=== PATIENT | female | born 1985 | race Caucasian/White ===

== ENCOUNTER → 2016-02-29 | Outpatient (CLI) | payer OTHER ==
--- NOTE | 2016-03-01 09:26 | ECGEPIP ---
Stationary ECG Study [facility] Test Date: 2016-02-29 Pat Name: BRENDAN ACKERMAN Department: Room: - Gender: F Manager Academic: RF : 1985 Requested By: TERE Pool Order Number: [id number] Reading MD: Braxton Leonardo Measurements Intervals [place] Rate: 89 P: 26 ID: [id number] QRS: 70 QRSD: 87 T: 15 QT: 346 QTc: 423 Interpretive Statements SINUS RHYTHM Comparison tracing not on file Electronically Signed On 03-01-2016 9:25:51 EST by Braxton Leonardo
== END | disposition home or self-care (01) ==
LOC: M EKG 15:14
PROVIDERS: ATTEND Specialist
DX: R00.0 Tachycardia, unspecified (principal)

== ENCOUNTER → 2016-03-07 | Outpatient (CLI) | payer OTHER ==
--- NOTE | 2016-03-07 21:26 | REP ---
Clinical: Anatomical evaluation. Comparison: 02/10/2016 . Findings: Examination demonstrates a single live intrauterine in cephalic presentation. motion is identified by technologist. Placenta is noted anteriorly and grade zero without evidence for placenta previa or abruption. Amniotic fluid volume is normal. Cervix measures row 4.2 cm in length and appears closed. No evidence for nuchal cord. Gestational age by LMP 21 weeks 4 days with ROBBI 07/14/2016 . Gestational age by current measurements 22 weeks 5 days with ROBBI 07/06/2016 . FHR equals 157 beats per minute. Estimated weight 561 grams ( 90th percentile based on age by current measurements). Anatomical assessment demonstrates normal structures including cranium, choroid plexus, cavum, cerebellum/posterior fossa, lungs, ventricular outflow tracts, diaphragm, stomach, three-vessel cord, kidneys/bladder, and spine. Limited evaluation of the four-chamber heart is again noted. Bilateral renal pelviectasis within normal range. Impression: Single live intrauterine in cephalic presentation demonstrating appropriate interval growth when compared to first ultrasound. Limited evaluation of the four-chamber heart view with otherwise normal complete anatomical assessment. Signed by Norman Cruz MD 03/07/2016 09:17 P
== END | disposition home or self-care (01) ==
LOC: M RAD 14:26
PROVIDERS: ATTEND Specialist
DX: Z36 Encounter for antenatal screening of mother (principal); Z3A.22 22 weeks gestation of pregnancy

== ENCOUNTER → 2016-03-20 | Outpatient (REF) | payer OTHER | END | disposition home or self-care (01) | LOC: M SFHCLERA 14:14 | PROVIDERS: ATTEND Nurse Practitioner Family | DX: J02.9 Acute pharyngitis, unspecified (principal) ==

== ENCOUNTER → 2016-03-31 | Outpatient (CLI) | payer OTHER ==
--- NOTE | 2016-03-31 16:58 | REP ---
Obstetric ultrasound for follow-up of anatomy: The prior anatomy study dated 03/07/2016 did not adequately visualize the four-chamber view of the heart. Study today is for follow-up of the four-chamber view of the heart. There is again a single intrauterine gestation. Fetus is in a vertex presentation. There is movement and cardiac activity, the heart rate is 139 beats per minute. The placenta is anterior. There is no previa or abruptio. Placenta is grade 1 maturity. Amniotic fluid volume subjectively is normal. The cervix is 3.6 cm length. Gestational age by today's measurements is 25 weeks 1 day per gestational age by the first ultrasound during this gestation is 25 weeks 0 days and by LMP 25 weeks 0 days. weight is 108 grams (1 pound, 12 ounces). This is the 25th percentile for 25-week 0 days. On the study today the four-chamber view of the heart is adequately demonstrated and is unremarkable. The remainder of the prior anatomy was previously adequately identified and unremarkable. Impression: Four-chamber view of the heart is adequately demonstrated and unremarkable. Signed by Jose Cavazos MD 03/31/2016 04:50 P
== END | disposition home or self-care (01) ==
LOC: M LRY 13:43
PROVIDERS: ATTEND Specialist
DX: Z34.82 Encounter for supervision of other normal pregnancy, second trimester (principal); Z36 Encounter for antenatal screening of mother; Z3A.25 25 weeks gestation of pregnancy

== ENCOUNTER → 2016-04-06 | Outpatient (CLI) | payer OTHER ==
[2016-04-06 18:15] LABS: BASO % 0.4 % (0.0-1.0); EOS # 0.2 K/mm3 (0.0-0.50); EOS % 1.8 % (0.0-3.0); LARGE UNSTAINED CELL # 0.2 K/mm3 (0.0-0.4); LARGE UNSTAINED CELL % 2.1 % (0.0-4.0); LYMPH # 1.8 K/mm3 (1.5-4.5); LYMPH % 15.1 % (24.0-44.0); MEAN CORPUSCULAR HEMOGLOBIN 29.1 pg (27.0-33.0); MEAN CORPUSCULAR HGB CONC 32.3 g/dl (32.0-36.5); MEAN CORPUSCULAR VOLUME 90.2 fl (80.0-96.0); MONO # 0.7 K/mm3 (0.0-0.8); MONO % 6.7 % (0.0-5.0); NEUTROPHILS # 7.7 K/mm3 (1.8-7.7); NEUTROPHILS % 73.9 % (36.0-66.0); PLATELET COUNT, AUTOMATED 249 k/mm3 (150-450); RED CELL DISTRIBUTION WIDTH 13.5 % (11.5-14.5); WHITE BLOOD COUNT 10.4 K/mm3 (4.0-10.0)
== END ==
LOC: M LRY 10:38
PROVIDERS: ATTEND Specialist
DX: Z34.82 Encounter for supervision of other normal pregnancy, second trimester (principal)

== ENCOUNTER → 2016-04-13 | Outpatient (CLI) | payer OTHER | LOC: M LAB 07:28 | PROVIDERS: ATTEND Specialist | DX: Z34.82 Encounter for supervision of other normal pregnancy, second trimester (principal) ==

== ENCOUNTER → 2016-06-13 | Outpatient (CLI) | payer OTHER ==
--- NOTE | 2016-06-14 04:30 | REP ---
Clinical: Growth discrepancy . Comparison: 03/31/2016 . Findings: Examination demonstrates a single live intrauterine in cephalic presentation. motion is identified by technologist. Placenta is noted anteriorly and grade one without evidence for placenta previa or abruption. Amniotic fluid volume is normal. Nuchal cord cannot be excluded. Internal os appears closed. Gestational age by LMP 35 weeks 4 days with ROBBI 07/14/2016 . Gestational age by current measurements 36 weeks 3 days with ROBBI 07/08/2016 . FHR equals 153 beats per minute. BPD 8.9 cm 36 weeks 0 days HC 32.3 cm 36 weeks 3 days AC 33.2 cm 37 weeks 1 day FL 7.2 cm 37 weeks 0 days HC/AC ratio 0.97 Estimated weight 3061 grams (73rd percentile). Amniotic fluid index equals 7.7 cm. Limited anatomical assessment suggests mild hydronephrosis and ultrasound may be warranted. Impression: Single live intrauterine in cephalic presentation demonstrating appropriate interval growth. Amniotic fluid volume is lower limits of normal. Mild renal hydronephrosis may warrant follow-up evaluation. Signed by Norman Cruz MD 06/14/2016 04:21 A
== END ==
LOC: M SMT 09:09
PROVIDERS: ATTEND Advanced Practice Midwife
DX: O26.843 Uterine size-date discrepancy, third trimester (principal); Z36 Encounter for antenatal screening of mother; Z3A.36 36 weeks gestation of pregnancy; O36.8930 Maternal care for other specified fetal problems, third trimester, not applicable or unspecified

== ENCOUNTER 2016-07-05 16:14 | Outpatient (CLI) | payer OTHER ==
[~2016-07-05] VITALS: Ht 149.9 cm; Wt 90.0 kg
[2016-07-05] MEDS ORDERED: PREN27TA3 PO (16:57)
[2016-07-05] MEDS ORDERED: LEVO75TA4 PO (16:57)
== END 2016-07-05 18:28 ==
LOC: M LDI 16:14 → UNDOADMIN 16:14 → M LDI 16:14 → M LDO 16:14 → UNDODISIN 18:28 → EDSTATUS 07-06 13:46
PROVIDERS: ATTEND Obstetrics & Gynecology
DX: O47.1 False labor at or after 37 completed weeks of gestation (principal); Z3A.39 39 weeks gestation of pregnancy

== ENCOUNTER 2016-07-10 01:40 | Inpatient (IN) | payer OTHER ==
[2016-07-10] VITALS (59 sets, daily range): BP systolic 83–148; BP diastolic 45–83
[~2016-07-10] VITALS: Ht 149.9 cm; Wt 95.0 kg
[~2016-07-10 01:40] MED LIST: LEVO75TA4 PO; PREN27TA3 PO
[2016-07-10] MEDS ORDERED: LR 1,000 ML IV SCH (04:48)
[2016-07-10] MEDS ORDERED: OXYTOCIN DRIP 30 UNITS in APPROPRIATE DILUENT 1 EA IV SCH ×2 (05:00→18:15)
[2016-07-10 05:24] LABS: MEAN CORPUSCULAR HEMOGLOBIN 27.5 pg (27.0-33.0); MEAN CORPUSCULAR HGB CONC 32.1 g/dl (32.0-36.5); MEAN CORPUSCULAR VOLUME 85.6 fl (80.0-96.0); RED CELL DISTRIBUTION WIDTH 14.6 % (11.5-14.5); WHITE BLOOD COUNT 13.7 K/mm3 (4.0-10.0)
--- NOTE | 2016-07-10 07:40 | HPE ---
DATE OF ADMISSION: 07/10/2016 Carlee is a 30-year-old 4, para 1-0-2-1 at 40 weeks gestation with an estimated date of confinement (EDC) of 07/10/2016 based on last normal period and confirmed by first trimester ultrasound. She presents to labor and delivery today with a report of uncomfortable contractions that were throughout the day yesterday and increasingly got more uncomfortable and closer together throughout the evening. She does report spontaneous rupture of clear fluid at 0430 hours. She does report some scant bloody show and the fetus has been active. care was initiated at [facility] in the first trimester. course complicated by obesity, history of previous section and hypothyroid. OBSTETRICAL HISTORY: March 2006: Spontaneous miscarriage. August 2013: A primary section for a 7 pound 5 ounce male following arrest of dilation and chorioamnionitis. November 2014: Ectopic . OB LABS: Blood type O+, antibody screen negative, rubella immune, VDRL nonreactive. Hepatitis B surface antigen negative, HIV negative, hepatitis C antibody nonreactive. Gonorrhea and chlamydia negative. Quad screen normal. Gestational diabetic screening elevated at 159, 3-hour glucose tolerance test normal, fasting 87, 1-hour 162, 2-hour 144, 3-hour 94. Her GBS is negative. PAST MEDICAL HISTORY: Hypothyroid. Childhood varicella. SURGICAL HISTORY: section. Appendectomy. Tonsillectomy. Left salpingectomy. FAMILY HISTORY: Diabetes, hypertension and asthma. SOCIAL HISTORY: The patient is . Her is at bedside and supportive. She is a nonsmoker. Denies alcohol and drug use. She denies a history of any sexually transmitted infections. Denies a history of abuse - physical, sexual and emotional. ALLERGIES: GRASS. No known drug allergies. CURRENT MEDICATIONS: Includes: - Synthroid 75 mcg - vitamin OBJECTIVE: Temperature 97.8, pulse 85, respirations 18, blood pressure 126/83. She is tensing with her contractions. heart rate is 120 with moderate variability, positive accelerations, no decelerations noted. Contractions every 3-5 minutes. Sterile speculum exam noted to be positive pooling, positive Valsalva, positive Nitrazine and positive fern. Sterile vaginal exam: 2 cm dilated, 80% effaced, -3 station. Her abdomen is gravid, cephalic presentation. Estimated weight 3700 grams. ASSESSMENT: Intrauterine at 40 weeks gestation. heart rate category one, early labor. PLAN: Admit the patient to labor and delivery. Out of bed ad key. Clear liquid diet. Labs as ordered. I do plan to start IV Pitocin to augment the patient's labor. She does desire an epidural for her labor coping. She has been counseled regarding a trial of labor after and risks including but not limited to uterine rupture during labor, compromise due to uterine rupture, risks to section including infection, hemorrhage, problems with anesthesia, injury to other body organs and future pregnancies, having complications related to abnormal placentation. She has been prior counseled during her care and still desires to proceed with a trial of labor after section. I do anticipate a more active labor and a vaginal after . LIZETT
[2016-07-10] MEDS ORDERED: FENTANYL 2MCG/ML ROPIVACAINE 0.2% IN 0.9% NACL 200ML IVBAG As Ordered ONE (08:35)
[2016-07-10] MEDS ORDERED: diphenhydrAMINE INJ 50MG/ML VIAL (J1200) IV PRN (10:00)
[2016-07-10] MEDS ORDERED: REFRIGERATOR IV KEYS XX PRN (10:00)
[2016-07-10] MEDS ORDERED: FENTANYL/ROPIVACAINE/NACL BAG 200 ML EPIDURAL SCH (10:00)
[2016-07-10] MEDS ORDERED: EPIDURAL/PCA KEYS XX PRN (10:00)
[2016-07-10] MEDS ORDERED: ONDANSETRON 4MG/2ML VIAL (J2405) IV PRN (10:00)
[2016-07-10] MEDS ORDERED: LACTATED RINGER'S 1000 ML IV PRN (10:00)
[2016-07-10] MEDS ORDERED: NALOXONE INJ 0.4 MG/1 ML VIAL (J2310) IV PRN (10:00)
[2016-07-10] MEDS ORDERED: EPIDURAL COMMENT XX SCH (10:00)
[2016-07-10] MEDS ORDERED: ePHEDrine SULFATE 25 MG/5 ML(5MG/ML) SYRINGE IV PRN (10:00)
[2016-07-10 17:39] LABS: CORD GAS ABE V -9.5; CORD GAS HCO3 V 17.7 MEQ/L; CORD GAS O2 SAT V 59.5 %; CORD GAS PCO2 V 43.4 mmHg; CORD GAS PH V 7.229 UNITS; CORD GAS PO2 V 29.2 mmHg; CORD GAS SBC V 16.2 MEQ/L; CORD GAS TCO2 V 19.1 MEQ/L
[2016-07-10 17:41] LABS: CORD GAS ABE A -11.6; CORD GAS HCO3 A 20.1 MEQ/L; CORD GAS O2 SAT A 23.6 %; CORD GAS PCO2 A 72.8 mmHg; CORD GAS PH A 7.058 UNITS; CORD GAS PO2 A 18.3 mmHg; CORD GAS SBC A 14.1 MEQ/L; CORD GAS TCO2 A 22.3 MEQ/L
[2016-07-10] MEDS ORDERED: DOCUSATE SODIUM 100 MG CAP PO PRN (18:15)
[2016-07-10] MEDS ORDERED: MEASLES,MUMPS,RUBELLA VACCINE INJ (MMR-II) (90707) SC SCH (18:15)
[2016-07-10] MEDS ORDERED: DIBUCAINE 1% OINTMENT 30GM TOP PRN (18:15)
[2016-07-10] MEDS ORDERED: RHOGAM 300 MCG (1500 IU) INJ (J2790) IM SCH (18:15)
[2016-07-10] MEDS ORDERED: METHYLERGONOVINE MALEATE 0.2 MG TAB PO PRN (18:15)
--- NOTE | 2016-07-10 18:55 | DN ---
DATE: 07/10/2016 Carlee is a 30-year-old 4, para 2-0-2-2 now, who was admitted to labor and delivery in active labor. Her labor was augmented with intravenous (IV) Pitocin. She utilized an epidural for her labor coping. She progressed to complete dilation at 1630. She pushed to a normal spontaneous vaginal delivery of a live male infant in occiput anterior (OA) position with restitution to right occiput transverse (ROT) position at 1730. There was a nuchal cord times one loose that was manually reduced. There was also a mild shoulder dystocia that was relieved with Priya maneuver and suprapubic pressure. The 's mouth and nares were bulb suctioned due to noted meconium-stained fluid at the time of delivery. The cord was clamped times two and cut. The was taken immediately to the warmer for resuscitation and evaluation by awaiting labor and delivery staff. Cord gases and cord bloods were obtained. Spontaneous expulsion of an intact placenta by three-vessel cord by Cannon mechanism was at 1737. Uterine hemostasis was achieved with IV Pitocin rapid infusion and uterine fundal massage. Perineum and vagina were inspected, noted to have a second-degree midline laceration. The laceration was repaired with 3-0 Rapide in the usual fashion. Estimated blood loss 350 mL. male weighed 8 pounds 6 ounces, 3784 grams, scores 6 and 9. Family have named him Jose, and the mom does plan to breastfeed. The was moving all extremities well. At the close of delivery, lap counts and needle counts and instrument counts were correct and verified. [facility]
[2016-07-10] MEDS: IBUPROFEN 800 MG TAB PO PRN (19:19)
[2016-07-11] MEDS: ACETAMINOPHEN 500 MG TAB PO PRN ×2 (03:03→21:17)
[2016-07-11 06:44] VITALS: BP 124/66
[2016-07-11] MEDS: PRENATAL VITAMIN TAB PO SCH (09:43)
[2016-07-11] MEDS: IBUPROFEN 800 MG TAB PO PRN ×2 (09:44→16:50)
[2016-07-11 18:00] VITALS: BP 130/68
[2016-07-12] MEDS: IBUPROFEN 800 MG TAB PO PRN (02:51)
[2016-07-12] MEDS: ACETAMINOPHEN 500 MG TAB PO PRN (05:09)
[2016-07-12 06:11] VITALS: BP 121/65
[2016-07-12] MEDS: PRENATAL VITAMIN TAB PO SCH (07:55)
[2016-07-12] MEDS ORDERED: IBUP-1114 PO (10:48)
[2016-07-12] MEDS ORDERED: ACET50TA PO (10:48)
== END 2016-07-12 15:45 | disposition home or self-care (01) | DRG 775 ==
LOC: M LDO 01:40 → M LDI 04:45 → M OBS 20:36
PROVIDERS: ADMIT Advanced Practice Midwife; ATTEND Advanced Practice Midwife
PROC: 10E0XZZ Delivery of Products of Conception, External Approach (ICD-10-PCS; principal; 2016-07-10)
PROC: 0KQM0ZZ Repair Perineum Muscle, Open Approach (ICD-10-PCS; 2016-07-10)
DX: O34.219 Maternal care for unspecified type scar from previous cesarean delivery (principal); Z37.0 Single live birth; Z3A.40 40 weeks gestation of pregnancy; E66.9 Obesity, unspecified; E03.9 Hypothyroidism, unspecified; O99.214 Obesity complicating childbirth; O99.284 Endocrine, nutritional and metabolic diseases complicating childbirth; Z90.721 Acquired absence of ovaries, unilateral; Z79.899 Other long term (current) drug therapy; O69.82X0 Labor and delivery complicated by other cord entanglement, without compression, not applicable or unspecified; O66.0 Obstructed labor due to shoulder dystocia; O77.0 Labor and delivery complicated by meconium in amniotic fluid; O70.1 Second degree perineal laceration during delivery

== ENCOUNTER 2016-11-22 16:39 | Emergency (ER) | payer OTHER ==
[~2016-11-22] VITALS: Ht 149.9 cm; Wt 95.9 kg
[~2016-11-22 16:39] MED LIST changes: -CYCL10TA PO; -NEXP1IMP SC; -TYLE325C PO; -ZOLO50TA PO
[2016-11-22] MEDS ORDERED: NEXP1IMP SC (17:01)
[2016-11-22] MEDS ORDERED: ZOLO50TA PO (17:01)
[2016-11-22] MEDS ORDERED: TYLE325C PO (17:01)
[2016-11-22 19:10] LABS: BASO # 0.1 10^3/uL (0.0-0.2); BASO % 0.5 % (0.0-1.0); EOS # 0.2 10^3/uL (0.0-0.50); EOS % 1.5 % (0.0-3.0); IMMATURE GRANULOCYTE % 0.5 % (0-0); LYMPH # 2.9 10^3/uL (1.5-4.5); LYMPH % 27.1 % (24.0-44.0); MEAN CORPUSCULAR HEMOGLOBIN 26.9 pg (27.0-33.0); MEAN CORPUSCULAR VOLUME 84.1 fl (80.0-96.0); MONO # 0.6 10^3/uL (0.0-0.8); MONO % 5.8 % (0.0-5.0); NEUTROPHILS # 6.8 10^3/uL (1.8-7.7); NEUTROPHILS % 64.6 % (36.0-66.0); PLATELET COUNT, AUTOMATED 313 10^3/uL (150-450); RED CELL DISTRIBUTION WIDTH 14.6 % (11.5-14.5); WHITE BLOOD COUNT 10.5 10^3/uL (4.0-10.0)
[2016-11-22 19:12] LABS: ADD MORPHOLOGY? NO
[2016-11-22] MEDS ORDERED: CYCLOBENZAPRINE 10 MG TAB PO ONE ×2 (19:15→20:45)
[2016-11-22 20:04] LABS: ANION GAP 9 MEQ/L (8-16); BLOOD UREA NITROGEN 7 MG/DL (7-18); CALCIUM LEVEL 8.8 MG/DL (8.5-10.1); CARBON DIOXIDE LEVEL 24 MEQ/L (21-32); CHLORIDE LEVEL 105 MEQ/L (98-107); CREATININE FOR GFR 0.62 MG/DL (0.55-1.02); GLOMERULAR FILTRATION RATE > 60.0 (>60); GLUCOSE, FASTING 114 MG/DL (70-105); HCG, SERUM QUANTITATIVE 6731 MIU/ML; POTASSIUM SERUM 3.9 MEQ/L (3.5-5.1); SODIUM LEVEL 138 MEQ/L (136-145)
[2016-11-22] MEDS ORDERED: CYCL10TA PO (20:27)
[2016-11-22 20:48] VITALS: BP 128/75
== END 2016-11-22 20:49 | disposition home or self-care (01) ==
LOC: M ED 16:39
DX: O9A.211 Injury, poisoning and certain other consequences of external causes complicating pregnancy, first trimester (principal); S39.012A Strain of muscle, fascia and tendon of lower back, initial encounter; X58.XXXA Exposure to other specified factors, initial encounter; Y92.89 Other specified places as the place of occurrence of the external cause; Y93.89 Activity, other specified; Y99.8 Other external cause status; O99.281 Endocrine, nutritional and metabolic diseases complicating pregnancy, first trimester; E03.9 Hypothyroidism, unspecified; O34.219 Maternal care for unspecified type scar from previous cesarean delivery; O99.341 Other mental disorders complicating pregnancy, first trimester; F33.9 Major depressive disorder, recurrent, unspecified; F41.9 Anxiety disorder, unspecified; O99.511 Diseases of the respiratory system complicating pregnancy, first trimester; J30.2 Other seasonal allergic rhinitis; Z3A.00 Weeks of gestation of pregnancy not specified; Z87.891 Personal history of nicotine dependence; Z79.899 Other long term (current) drug therapy; Z79.3 Long term (current) use of hormonal contraceptives; Z98.890 Other specified postprocedural states; O09.299 Supervision of pregnancy with other poor reproductive or obstetric history, unspecified trimester
CPT/HCPCS: 36415; 80048; 81001; 84702; 85025; 87086; 99282; G0463

== ENCOUNTER → 2016-11-22 | Outpatient (REF) | payer OTHER ==
[~2016-11-22] MED LIST changes: +ACET50TA PO; +CYCL10TA PO; +IBUP-1114 PO; +NEXP1IMP SC; +TYLE325C PO; +ZOLO50TA PO
== END ==
LOC: M SFHCLERA 16:13
PROVIDERS: ATTEND Nurse Practitioner Family
DX: M54.5 Low back pain (principal)

== ENCOUNTER → 2016-12-09 | Outpatient (CLI) | payer OTHER ==
[~2016-12-09] MED LIST changes: +CYCL10TA PO; +NEXP1IMP SC; +TYLE325C PO; +ZOLO50TA PO
[2016-12-09 17:34] LABS: BASO % 0.4 % (0.0-1.0); EOS # 0.1 10^3/uL (0.0-0.50); EOS % 1.2 % (0.0-3.0); IMMATURE GRANULOCYTE % 0.5 % (0-0); LYMPH # 2.1 10^3/uL (1.5-4.5); LYMPH % 20.8 % (24.0-44.0); MEAN CORPUSCULAR HEMOGLOBIN 26.6 pg (27.0-33.0); MEAN CORPUSCULAR HGB CONC 31.3 g/dl (32.0-36.5); MONO # 0.6 10^3/uL (0.0-0.8); MONO % 5.8 % (0.0-5.0); NEUTROPHILS # 7.3 10^3/uL (1.8-7.7); NEUTROPHILS % 71.3 % (36.0-66.0); PLATELET COUNT, AUTOMATED 294 10^3/uL (150-450); RED CELL DISTRIBUTION WIDTH 14.3 % (11.5-14.5); WHITE BLOOD COUNT 10.3 10^3/uL (4.0-10.0)
[2016-12-09 18:18] LABS: T UPTAKE 30 % (30-39)
[2016-12-12 11:51] LABS: HBsAg Prenatal NEGATIVE (NEGATIVE)
== END ==
LOC: M LRY 10:09
PROVIDERS: ATTEND Advanced Practice Midwife
DX: O99.281 Endocrine, nutritional and metabolic diseases complicating pregnancy, first trimester (principal); E03.9 Hypothyroidism, unspecified; Z3A.01 Less than 8 weeks gestation of pregnancy

== ENCOUNTER → 2016-12-28 | Outpatient (REF) | payer OTHER | LOC: M LAB REF 13:27 | PROVIDERS: ATTEND Advanced Practice Midwife | DX: Z34.81 Encounter for supervision of other normal pregnancy, first trimester (principal); Z3A.10 10 weeks gestation of pregnancy ==

== ENCOUNTER → 2017-03-10 | Outpatient (CLI) | payer OTHER | LOC: M LRY 14:15 | DX: Z34.82 Encounter for supervision of other normal pregnancy, second trimester (principal); Z3A.20 20 weeks gestation of pregnancy | CPT/HCPCS: 76811 ==

== ENCOUNTER → 2017-04-14 | Outpatient (CLI) | payer OTHER ==
[2017-04-14 11:54] LABS: HEMATOCRIT 38.5 % (36.0-47.0); HEMOGLOBIN 12.2 g/dl (12.0-16.0); MEAN CORPUSCULAR HEMOGLOBIN 27.6 pg (27.0-33.0); MEAN CORPUSCULAR HGB CONC 31.7 g/dl (32.0-36.5); MEAN CORPUSCULAR VOLUME 87.1 fl (80.0-96.0); PLATELET COUNT, AUTOMATED 250 10^3/uL (150-450); RED BLOOD COUNT 4.42 10^6/uL (4.00-5.40); RED CELL DISTRIBUTION WIDTH 14.4 % (11.5-14.5); WHITE BLOOD COUNT 12.3 10^3/uL (4.0-10.0)
[2017-04-14 12:30] LABS: GLUCOSE CHALLENGE TEST 1 HOUR 138 MG/DL (LESS THAN 140)
== END ==
LOC: M LRY 08:24
DX: Z34.82 Encounter for supervision of other normal pregnancy, second trimester (principal); Z36.89 Encounter for other specified antenatal screening
CPT/HCPCS: 82950

== ENCOUNTER → 2017-04-21 | Outpatient (CLI) | payer OTHER ==
[2017-04-21 09:08] LABS: GLUCOSE, FASTING 84 MG/DL (LESS THAN 95)
[2017-04-21 10:01] LABS: 1 HR GLUCOSE 146 MG/DL (LESS THAN 180)
[2017-04-21 10:44] LABS: 2 HR GLUCOSE 169 MG/DL (LESS THAN 155)
[2017-04-21 12:03] LABS: 3 HR GLUCOSE 112 MG/DL (LESS THAN 140)
== END ==
LOC: M LAB 07:52
DX: Z34.82 Encounter for supervision of other normal pregnancy, second trimester (principal)

== ENCOUNTER 2017-06-08 22:08 | Outpatient (CLI) | payer OTHER ==
[2017-06-09 01:41] LABS: APPEARANCE, URINE CLEAR (CLEAR); BACTERIA, URINE AUTO 1+ (NEGATIVE); BILIRUBIN, URINE AUTO NEGATIVE (NEGATIVE); BLOOD, URINE BLOOD 2+ (NEGATIVE); COLOR, URINE STRAW (YELLOW); GLUCOSE, URINE (UA) AUTO NEGATIVE (NEGATIVE); KETONE, URINE AUTO NEGATIVE (NEGATIVE); LEUKOCYTE ESTERASE, URINE AUTO TRACE (NEGATIVE); MUCUS, URINE SMALL (NEGATIVE); NITRITE, URINE AUTO NEGATIVE (NEGATIVE); PROTEIN, URINE AUTO NEGATIVE (NEGATIVE); RBC, URINE AUTO 0 /HPF (0-3); SPECIFIC GRAVITY URINE AUTO 1.002 (1.002-1.035); SQUAMOUS EPITHELIAL CELL UR AU 4 /HPF (0-6); UROBILINOGEN, URINE AUTO 0.2 mg/dL (0.0-2.0); WBC, URINE AUTO 3 /HPF (0-3)
== END 2017-06-09 02:12 | disposition home or self-care (01) ==
LOC: M LDO 22:08
DX: O47.03 False labor before 37 completed weeks of gestation, third trimester (principal); Z3A.33 33 weeks gestation of pregnancy
CPT/HCPCS: 59025

== ENCOUNTER → 2017-06-28 | Outpatient (REF) | payer OTHER | LOC: M LAB REF 16:58 | DX: Z34.93 Encounter for supervision of normal pregnancy, unspecified, third trimester (principal) ==

== ENCOUNTER 2017-07-11 06:36 | Inpatient (IN) | payer OTHER ==
[2017-07-11] MEDS ORDERED: LR 1,000 ML IV (07:00)
[2017-07-11] MEDS: BICITRA 30ML SOLN UDC PO (07:00)
[2017-07-11] MEDS: LACTATED RINGER'S 1000 ML IV (07:00)
[2017-07-11 07:23] LABS: HEMATOCRIT 36.6 % (36.0-47.0); HEMOGLOBIN 11.6 g/dl (12.0-15.5); MEAN CORPUSCULAR HGB CONC 31.7 g/dl (32.0-36.5); MEAN CORPUSCULAR VOLUME 81.9 fl (80.0-96.0); PLATELET COUNT, AUTOMATED 251 10^3/uL (150-450); RED BLOOD COUNT 4.47 10^6/uL (4.00-5.40); RED CELL DISTRIBUTION WIDTH 13.9 % (11.5-14.5); WHITE BLOOD COUNT 12.4 10^3/uL (4.0-10.0)
[2017-07-11] MEDS ORDERED: OXYTOCIN INJ 10 UNITS/ML VIAL (J2590) As Ordered (08:02)
[2017-07-11] MEDS ORDERED: MORPHINE PRES-FREE INJ 10 MG/10 ML VIAL (J2274) As Ordered (08:02)
[2017-07-11] MEDS ORDERED: ONDANSETRON 4MG/2ML VIAL (J2405) As Ordered (08:02)
[2017-07-11] MEDS ORDERED: NALOXONE INJ 0.4 MG/1 ML VIAL (J2310) IV ×2 (08:03)
[2017-07-11] MEDS ORDERED: PHENYLephrine HCL 500 MCG/5 ML (100MCG/ML) SYRINGE (J2370) As Ordered (08:03)
[2017-07-11] MEDS ORDERED: NALBUPHINE HCL 10 MG/ML AMP (J2300) IV (08:03)
[2017-07-11] MEDS ORDERED: ONDANSETRON 4MG/2ML VIAL (J2405) IV ×2 (08:03→09:00)
[2017-07-11] MEDS ORDERED: KETOROLAC 60 MG/2 ML VIAL (J1885) As Ordered (08:35)
[2017-07-11] MEDS ORDERED: MEPERIDINE 50 MG/ML 1ML VIAL (J2175) As Ordered (08:36)
[2017-07-11] MEDS: LR 1,000 ML IV ×2 (08:59→16:44)
[2017-07-11] MEDS: PRENATAL VITAMINS CHEWABLE TABLET PO (09:00)
[2017-07-11] MEDS ORDERED: PERCOCET 5MG/325MG TAB PO (09:00)
[2017-07-11] MEDS ORDERED: ePHEDrine SULFATE 25 MG/5 ML(5MG/ML) SYRINGE As Ordered (09:10)
[2017-07-11] MEDS: ePHEDrine INJ 50 MG/ML VIAL IV ×2 (09:18→09:23)
[2017-07-11] MEDS: miSOPROStol 200 MCG TAB (S0191) PR (10:15)
[2017-07-11] MEDS ORDERED: miSOPROStol 200 MCG TAB (S0191) As Ordered (10:17)
[2017-07-11] MEDS ORDERED: OXYTOCIN 30 UNITS IN 0.9% NaCl 500ML IV BAG (J2590) As Ordered ×2 (10:21→11:16)
[2017-07-11] MEDS: MEASLES,MUMPS,RUBELLA VACCINE INJ (MMR-II) (90707) SC (10:57)
[2017-07-11] MEDS: RHOGAM 300 MCG (1500 IU) INJ (J2790) IM (10:57)
[2017-07-11] MEDS: OXYTOCIN DRIP 30 UNITS in APPROPRIATE DILUENT 1 EA IV (11:00)
[2017-07-11] MEDS: PERCOCET 5MG/325MG TAB PO (12:16)
[2017-07-11] MEDS: KETOROLAC 30 MG/ML VIAL (J1885) IV ×2 (15:00→20:59)
[2017-07-11] MEDS: METOCLOPRAMIDE INJ 10MG/2ML VIAL (J2765) IV (17:02)
[2017-07-12] MEDS: KETOROLAC 30 MG/ML VIAL (J1885) IV (03:19)
[2017-07-12] MEDS: LR 1,000 ML IV (06:49)
[2017-07-12 06:54] LABS: HEMATOCRIT 24.2 % (36.0-47.0); MEAN CORPUSCULAR HEMOGLOBIN 25.9 pg (27.0-33.0); MEAN CORPUSCULAR HGB CONC 31.4 g/dl (32.0-36.5); MEAN CORPUSCULAR VOLUME 82.3 fl (80.0-96.0); PLATELET COUNT, AUTOMATED 249 10^3/uL (150-450); RED BLOOD COUNT 2.94 10^6/uL (4.00-5.40); RED CELL DISTRIBUTION WIDTH 13.8 % (11.5-14.5); WHITE BLOOD COUNT 14.6 10^3/uL (4.0-10.0)
[2017-07-12 07:09] LABS: HEMOGLOBIN 7.6 g/dl (12.0-15.5)
[2017-07-12] MEDS: PRENATAL VITAMINS CHEWABLE TABLET PO (07:57)
[2017-07-12] MEDS: PERCOCET 5MG/325MG TAB PO ×4 (08:52→23:03)
[2017-07-12] MEDS: IBUPROFEN 800 MG TAB PO ×2 (10:20→18:22)
[2017-07-12] MEDS: DOCUSATE SODIUM 100 MG CAP PO (10:20)
[2017-07-13] MEDS: IBUPROFEN 800 MG TAB PO ×2 (03:00→10:27)
[2017-07-13] MEDS: PERCOCET 5MG/325MG TAB PO (05:42)
[2017-07-13] MEDS: PRENATAL VITAMINS CHEWABLE TABLET PO (07:57)
== END 2017-07-13 11:15 | disposition home or self-care (01) | DRG 766 ==
LOC: M LDO 06:36 → M LDI 06:56 → M OBS 12:10
PROVIDERS: Advanced Practice Midwife
PROC: 10D00Z1 Extraction of Products of Conception, Low, Open Approach (ICD-10-PCS; principal; 2017-07-11 07:56)
PROC: 0UB50ZZ Excision of Right Fallopian Tube, Open Approach (ICD-10-PCS; 2017-07-11 07:56)
PROC: 0HB9XZZ Excision of Perineum Skin, External Approach (ICD-10-PCS; 2017-07-11 07:56)
DX: O34.211 Maternal care for low transverse scar from previous cesarean delivery (principal); O75.82 Onset (spontaneous) of labor after 37 completed weeks of gestation but before 39 completed weeks gestation, with delivery by (planned) cesarean section; Z3A.38 38 weeks gestation of pregnancy; O99.284 Endocrine, nutritional and metabolic diseases complicating childbirth; E03.9 Hypothyroidism, unspecified; O99.72 Diseases of the skin and subcutaneous tissue complicating childbirth; L91.8 Other hypertrophic disorders of the skin; Z30.2 Encounter for sterilization; Z37.0 Single live birth; Z90.79 Acquired absence of other genital organ(s)

== ENCOUNTER → 2018-01-19 | Outpatient (REF) | payer OTHER | LOC: M SFHCLERA 11:00 | DX: E03.9 Hypothyroidism, unspecified (principal); Z53.8 Procedure and treatment not carried out for other reasons ==

== ENCOUNTER → 2018-02-06 | Outpatient (REF) | payer OTHER ==
[~2018-02-06] MED LIST changes: -ACET50TA PO; +COLA100C5 PO; +MAPA500T17 PO; +MOTR200T44 PO; +OXYC1TAB23 PO; +PRENTAB9 PO
== END ==
LOC: M SFHCLERA 12:24
PROVIDERS: ATTEND Family Medicine
DX: E03.9 Hypothyroidism, unspecified (principal)

== ENCOUNTER → 2018-02-09 | Outpatient (REF) | payer OTHER ==
[~2018-02-09] MED LIST changes: -MAPA500T17 PO; +MAPA500T2 PO
== END ==
LOC: M SFHCLERA 11:55
PROVIDERS: ATTEND Family Medicine
DX: E03.9 Hypothyroidism, unspecified (principal)

== ENCOUNTER → 2018-03-29 | Outpatient (CLI) | payer OTHER | LOC: M LRY 13:00 | PROVIDERS: ATTEND Physician Assistant | DX: M25.532 Pain in left wrist (principal); Z53.8 Procedure and treatment not carried out for other reasons ==

== ENCOUNTER → 2018-05-17 | Outpatient (CLI) | payer OTHER ==
--- NOTE | 2018-05-17 17:04 | REP ---
Clinical: Chronic pain Technique: AP, lateral, bilateral oblique views left wrist . Findings: The carpal bones, surrounding osseous structures, soft tissues, and joint spaces are normal. There is no evidence for acute fracture or dislocation. No subcutaneous emphysema or radiodense foreign body. Impression: Normal wrist series. No acute fracture or dislocation Electronically Signed by Norman Cruz MD 05/17/2018 04:56 P
== END ==
LOC: M LRY 16:21
PROVIDERS: ATTEND Family Medicine
DX: M25.532 Pain in left wrist (principal)
CPT/HCPCS: 73110; 84443; G0463

== ENCOUNTER → 2018-05-17 | Outpatient (REF) | payer OTHER | LOC: M SFHCLERA 16:12 | PROVIDERS: ATTEND Family Medicine | DX: E03.9 Hypothyroidism, unspecified (principal) ==

== ENCOUNTER → 2018-10-10 | Outpatient (CLI) | payer OTHER ==
--- NOTE | 2018-10-11 09:32 | REP ---
MR ARTHROGRAPHY LEFT SHOULDER WITHOUT CONTRAST: HISTORY: Impingement syndrome. Arm pain and swelling. No comparison radiographs available. TECHNIQUE: Axial, oblique coronal, oblique sagittal imaging planes are utilized. T1- and T2-weighted scans were obtained in the usual fashion with and without fat saturation. MRI FINDINGS: Cortical and medullary bone signal intensity are normal. There is a fairly large subacromial subdeltoid bursal effusion. A small glenohumeral joint effusion. The AC joint is normally aligned. Glenohumeral articulation is normally aligned. No loose body is seen. No labral tear is appreciated. There is some thickening of the subscapularis tendon consistent with tendinosis. Infraspinatus and biceps tendons appear intact. The supraspinatus tendon shows some thickening and increased signal intensity on oblique coronal T1- and T2-weighted scans consistent with tendinosis in this tendon as well. No juxta-articular cyst or mass is seen. Exam is otherwise unremarkable. IMPRESSION: Tendinosis change in the supraspinatus and subscapularis tendons. No focal cuff tear seen. Subacromial subdeltoid bursal effusion. Electronically Signed by Kameron Walker MD 10/11/2018 09:37 A
== END ==
LOC: M RAD 17:49
PROVIDERS: ATTEND Orthopaedic Surgery Sports Medicine
DX: M75.42 Impingement syndrome of left shoulder (principal); M25.412 Effusion, left shoulder

== ENCOUNTER → 2019-04-21 | Outpatient (CLI) | payer OTHER ==
--- NOTE | 2019-04-21 14:16 | REP ---
CHEST, TWO VIEWS: Two views of the chest are performed. There are no prior studies for comparison. Infiltrate is seen in the right upper lobe, in the region of the apex medially. There appears to be linear atelectatic change in each lung base. Heart is normal in size. Mediastinal silhouette appears unremarkable. IMPRESSION: Right upper lobe infiltrate. Recommend followup to resolution. Electronically Signed by Jose Sarkar MD 04/21/2019 06:41 P
== END ==
LOC: M LRY 13:26
PROVIDERS: ATTEND Physician Assistant
DX: R09.81 Nasal congestion (principal)
CPT/HCPCS: 71046; 87804; G0463

== ENCOUNTER → 2019-05-03 | Outpatient (REF) | payer OTHER | LOC: M SFHCLERA 15:41 | PROVIDERS: ATTEND Nurse Practitioner Family | DX: J02.9 Acute pharyngitis, unspecified (principal) ==

== ENCOUNTER → 2019-05-03 | Outpatient (CLI) | payer OTHER ==
--- NOTE | 2019-05-03 16:56 | REP ---
HISTORY: Exposure to the flu. COMPARISON: 04/21/2019 FINDINGS: The superior mediastinal structures are midline. The cardiac silhouette is unremarkable in size, shape and position. The diaphragmatic surfaces of the lungs are regular and the costophrenic angles are clear. The pulmonary rivas are clear. The imaged osseous structures are intact. The opacity seen previously in the right upper lobe has resolved. IMPRESSION: There is no acute cardiopulmonary disease. Electronically Signed by Alon Don DO 05/03/2019 06:49 P
== END ==
LOC: M LRY 15:40
PROVIDERS: ATTEND Nurse Practitioner Family
DX: Z20.828 Contact with and (suspected) exposure to other viral communicable diseases (principal)
CPT/HCPCS: 71046; 87804; G0463

== ENCOUNTER → 2020-01-01 | Outpatient (CLI) | payer OTHER ==
[~2020-01-01] MED LIST changes: +CYCL-707 PO; -CYCL10TA PO
[2020-01-01 20:17] LABS: FREE T4 0.82 NG/DL (0.76-1.46); THYROID STIMULATING HORMONE 3.49 uIU/ML (0.358-3.740)
== END ==
LOC: M WUC 16:32
PROVIDERS: ATTEND Nurse Practitioner Family
DX: E03.9 Hypothyroidism, unspecified (principal)

== ENCOUNTER → 2020-04-16 | Outpatient (CLI) | payer OTHER ==
[~2020-04-16] MED LIST changes: +PROHANCE 279.3MG/ML 15ML VIAL As Ordered ONE; +PROHANCE 279.3MG/ML 5ML VIAL As Ordered ONE
--- NOTE | 2020-04-16 17:50 | REP ---
INDICATION: HIGH RISK FAMILY H/O BRST CA SCREENING. COMPARISON: Comparison mammography September 12, 2019. TECHNIQUE: Three Nataliia MRI imaging was performed with a dedicated breast coil. Axial, coronal, and sagittal T1 and T2 weighted scans were obtained with and without fat saturation in the usual fashion. The study includes dynamically acquired post gadolinium-enhanced imaging with image subtraction. Maximum intensity projection and multi planar reformation imaging is included as well. This study is interpreted with the aid of [employer], an FDA approved computer aided detection (CAD) software program, on a dedicated breast MRI workstation. The gadolinium enhancement dose is 18 mL of intravenous ProHance. FINDINGS: There is a moderate amount of fibroglandular tissue bilaterally corresponding with the mammographic pattern. There is mild background parenchymal enhancement. There are multiple symmetric slightly prominent axillary lymph nodes bilaterally. No definite adenopathy. The left breast is unremarkable. There is a 1.4 cm area of stippled grouped non mass-like enhancement and possible architectural distortion in the right breast inferolateral quadrant at approximately the 8 o'clock position middle to posterior 3rd which merits further evaluation. Dynamically acquired sequential postcontrast images show stippled areas of enhancement and washout kinetics in a punctate fashion. No masslike features. The right breast is otherwise unremarkable. IMPRESSION: BI-RADS category 0 incomplete breast imaging. A grouping of stippled contrast enhancement and possible architectural distortion in the 8 o'clock position of the right breast. Second-look focused right breast ultrasound recommended for further evaluation. Histologic sampling may be warranted.. <Electronically signed by Ruperto Walker > 04/16/20 [id number]
== END ==
LOC: M RAD 15:45
PROVIDERS: ATTEND Nurse Practitioner Women's Health
DX: R92.8 Other abnormal and inconclusive findings on diagnostic imaging of breast (principal); N63.13 Unspecified lump in the right breast, lower outer quadrant; Z91.89 Other specified personal risk factors, not elsewhere classified; Z80.3 Family history of malignant neoplasm of breast
CPT/HCPCS: A9576; C8908

== ENCOUNTER → 2020-05-04 | Outpatient (CLI) | payer OTHER ==
[~2020-05-04] MED LIST changes: -PROHANCE 279.3MG/ML 15ML VIAL As Ordered ONE; -PROHANCE 279.3MG/ML 5ML VIAL As Ordered ONE
--- NOTE | 2020-05-04 12:30 | REP ---
INDICATION: RIGHT BREAST SECOND LOOK POST MRI. Comparison MRI study April 16, 2020 showed a possible abnormal area of breast parenchyma in the inferolateral quadrant on the right. Comparison is also made with mammography from September 12, 2019. Positive family history breast carcinoma. COMPARISON: Comparison breast imaging as above.. TECHNIQUE: Targeted right breast sonography is performed. Part of the exam was performed in my presence. FINDINGS: Right breast is scanned from 7:00 to 9:00. At 8 o'clock position in the middle 3rd of the right breast there is a 4 x 4 x 3 mm simple cyst. On review of the MR imaging, I find that this cyst is visible on MR images and is felt to be within the area of stippled contrast enhancement seen on the MR I study. I feel this could be used as a ultrasound lab marked target the the adjacent breast parenchyma for tissue sampling. No other sonographic abnormality is seen. No mass, acoustic shadowing or architectural distortion is seen. Mildly heterogeneous fibroglandular background echotexture is seen. IMPRESSION: No sonographically suspicious abnormality is observed. There is a 4 mm benign-appearing cyst which could be used as a landmark to guide tissue sampling procedure under ultrasound guidance since it is within the area in question on MRI scanning. Recommend ultrasound-guided biopsy of the breast parenchyma immediately adjacent to the cyst wall at 8 o'clock position right breast. Marker clip placement and post clip placement mammography recommended as well. BI-RADS category 4 suspicious right breast imaging. Possibly suspicious MRI findings. <Electronically signed by Ruperto Walker > 05/04/20 [id number]
== END ==
LOC: M RAD 10:55
PROVIDERS: ATTEND Nurse Practitioner Women's Health
DX: Z12.31 Encounter for screening mammogram for malignant neoplasm of breast (principal); Z80.3 Family history of malignant neoplasm of breast

== ENCOUNTER → 2020-05-29 | Outpatient (CLI) | payer OTHER ==
--- NOTE | 2020-05-29 13:29 | REP ---
INDICATION: R92.8 POST MRI BIOPSY,CONFIRM CLIP PLACEMENT. COMPARISON: MRI 04/16/2020, mammogram 09/12/2019. TECHNIQUE: ML and CC views right breast performed following MR guided biopsy of the lateral right breast at the level of the nipple. FINDINGS: A biopsy clip is seen the level of the nipple slightly laterally, at the expected location of the biopsy. IMPRESSION: Biopsy clip deployed in the lateral right breast at the site of MR guided biopsy. RECOMMENDATION: Clinical follow-up. <Electronically signed by Jose Sarkar > 05/29/20 [id number]
== END ==
LOC: M WHC 11:31
PROVIDERS: ATTEND Nurse Practitioner Women's Health
DX: R92.8 Other abnormal and inconclusive findings on diagnostic imaging of breast (principal)

== ENCOUNTER → 2020-05-29 | Outpatient (CLI) | payer OTHER ==
[~2020-05-29] MED LIST changes: +LIDOCAINE 1% MDV 20ML VIAL As Ordered ONE; +PROHANCE 279.3MG/ML 15ML VIAL As Ordered ONE; +PROHANCE 279.3MG/ML 5ML VIAL As Ordered ONE
[2020-05-29 10:40] VITALS: BP 164/111
--- NOTE | 2020-05-29 18:52 | REP ---
INDICATION: FAMILY HISTORY OF BREAST CANCER IN SISTER. COMPARISON: None. TECHNIQUE: The procedure was performed under the personal supervision of Dr. Sarkar. The patient has a history of a grouping of stippled contrast enhancement and possible architectural distortion in the 8 o'clock position of the right breast seen on a previous MRI dated 04/16/2020. The risks and benefits of the procedure were explained to the patient and informed consent was obtained. The right breast nodule was localized using pre and post gadolinium MRI sequences. Targeting was performed by Dr. Sarkar based on the MRI images. The skin was prepped and draped in a sterile fashion. 1% lidocaine was used as a local anesthetic. The obturator was inserted and the scan was performed. 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 The stylet was removed and an 8 gauge is suction assisted mammotome needle was inserted and 6 core biopsy samples were obtained. A HydroMARK clip was placed at the biopsy site. The needle was then removed. Follow-up images demonstrate good marker clip placement. The patient tolerated the procedure well and there were no immediate complications. After the appropriate amount to monitor convalescence the patient was discharged from the department. FINDINGS: None IMPRESSION: MRI guided right breast biopsy with marker clip placement. <Electronically signed by Russ Marks > 05/29/20 [id number] <Electronically signed by Jose Sarkar > 05/29/20 [id number]
== END ==
LOC: M IRPRO 08:14
PROVIDERS: ATTEND Nurse Practitioner Women's Health
DX: N63.10 Unspecified lump in the right breast, unspecified quadrant (principal); Z80.3 Family history of malignant neoplasm of breast